=== PATIENT | female | born 1940 | race Caucasian/White ===

== ENCOUNTER 2016-04-21 08:43 | Observation (INO) | payer MEDICARE, OTHER ==
[~2016-04-21] VITALS: Ht 152.4 cm; Wt 76.5 kg
[2016-05-08] MEDS ORDERED: TIGAN300 MG PO (13:52)
[2016-05-08] MEDS ORDERED: CENTRUM SILVER1 EAC1 PO (13:52)
[2016-05-08] MEDS ORDERED: FEOSOL-DPS325 MG PO (13:52)
[2016-05-08] MEDS ORDERED: NORCO 5-325 TA1 EACH PO (13:52)
[2016-05-08] MEDS ORDERED: KLOR-CON M2020 ME1 PO (13:52)
[2016-05-08] MEDS ORDERED: LOPRESSOR DPS50 MG PO (13:52)
[2016-05-08] MEDS ORDERED: CRANBERRY200 MG PO (13:52)
[2016-05-08] MEDS ORDERED: JANUMET 50-1,01 EACH PO (13:53)
[2016-05-08] MEDS ORDERED: ZANTAC DPS150 MG PO (13:53)
[2016-05-08] MEDS ORDERED: ZESTRIL DPS20 MG PO (13:53)
[2016-05-08] MEDS ORDERED: COUMADIN5 MG PO (13:53)
[2016-05-08] MEDS ORDERED: ZOCOR DPS20 MG PO (13:53)
[2016-05-08] MEDS ORDERED: ZOFRAN ODT4 MG PO (13:54)
[2016-05-08] MEDS ORDERED: AMBIEN DPS10 MG PO (13:54)
[2016-05-08] MEDS ORDERED: PRILOSEC DPS20 MG PO (13:54)
--- NOTE | 2016-05-11 10:10 | OR ---
ADMIT: 05/06/2016 RM/LOC: 623 [facility] MR#: [id number] [address] DAVID MCKEON [address] [place] [address] Operative/Delivery Room Report SEX: F AGE: 75 : 1940 SURGERY DATE: 05/06/2016 SURGEON: Naveed Hoffmann MD PREOPERATIVE DIAGNOSIS: Ventral incisional hernia. POSTOPERATIVE DIAGNOSIS: Ventral incisional hernia. PROCEDURE: 1. Laparoscopic lysis of adhesions of 45 minutes. 2. Laparoscopic ventral incisional hernia repair with [address] mesh. PAVING RAMMER: JUANITO Barbour, whose assistance was necessary for laparoscopic visualization and tissue retraction. ANESTHESIA: General. ESTIMATED BLOOD LOSS: 25 mL. DESCRIPTION OF PROCEDURE: The patient was taken to the operating room and placed supine on the operating room table. General anesthesia was established. The abdomen was prepped and draped in the standard surgical fashion. A 5 mm left subcostal incision was made in the mid clavicular line. A Veress needle was advanced into the peritoneal cavity at this level. Carbon dioxide was used to insufflate the abdomen to 15 mmHg pressure. The Veress needle was withdrawn, and a 5 mm Optiview trocar was placed. Next, a 5 mm left lateral port was placed under visualization. There were extensive anterior abdominal wall adhesions of small bowel. These were initially freed to allow placement of epigastric 5 mm ports. The remainder of the adhesiolysis took approximately 45 minutes because of its extensive nature and small bowel adhesions. She had a prior omentectomy, which unfortunately meant that the bowel had adhesed to nearly the entire anterior surface of the abdominal wall. This adhesiolysis was performed in its entirety for completion of exposure of the anterior abdominal wall. The hernia defects were then visualized above the umbilicus. Stab incisions were made overlying the defects to allow primary closure of the defect. This was performed with 0 Ethibond suture, passed with a needle Passer. Four separate sutures were placed along the defects for approximation of the fascial margins. Next, a 20 ADMIT: 05/06/2016 RM/LOC: 623 [facility] MR#: [id number] [address] [place] [address] Operative/Delivery Room Report SEX: F AGE: 75 : [address] mesh was placed intra-abdominally. This was brought to the anterior abdominal wall with the echo positioning system. The mesh was then secured circumferentially in several layers with the SecureStrap device. This provided excellent overlap of the defects with no tension. The small bowel was inspected and there was no evidence of enterotomy. The ports were removed under visualization without evidence of bleeding. The fascial margin at the 12 mm port site was approximated with 0 Vicryl suture and the suture passer. The abdomen was allowed to deflate. Skin edges were approximated with 4-0 Monocryl in a subcuticular fashion and Dermabond. Local anesthetic was injected at the incisions. Sponge, needle, and instrument counts were correct at the end of the case. The patient tolerated the procedure well and transferred to the recovery area in stable condition. Naveed Hoffmann MD/ jamal JOB #: [id number] CC: Naveed Hoffmann, Attending Physician Horace Bedolla, Family Physician
== END 2016-05-07 14:00 | disposition home or self-care (01) ==
LOC: WOR 05-06 06:30 → 6PED 05-06 11:04
PROVIDERS: ADMIT Surgery
PROC: 0WUF4JZ Supplement Abdominal Wall with Synthetic Substitute, Percutaneous Endoscopic Approach (ICD-10-PCS; principal; 2016-05-06)
DX: K43.2 Incisional hernia without obstruction or gangrene (principal); I10 Essential (primary) hypertension; F41.9 Anxiety disorder, unspecified; E11.9 Type 2 diabetes mellitus without complications; Z90.710 Acquired absence of both cervix and uterus; Z90.49 Acquired absence of other specified parts of digestive tract; Z98.890 Other specified postprocedural states; Z88.0 Allergy status to penicillin; Z88.8 Allergy status to other drugs, medicaments and biological substances; Z79.899 Other long term (current) drug therapy; Z79.01 Long term (current) use of anticoagulants; Z87.891 Personal history of nicotine dependence